=== PATIENT | female | born 1985 | race Two or more races ===

== ENCOUNTER 2019-05-08 12:08 | Emergency (ER) | payer MEDICAID ==
[~2019-05-08] VITALS: Ht 157.5 cm; Wt 58.2 kg
[2019-05-08 16:22] VITALS: BP 115/68
== END 2019-05-08 16:24 | disposition home or self-care (01) ==
LOC: ER 12:08
DX: J02.9 Acute pharyngitis, unspecified (principal); M79.18 Myalgia, other site; Z98.51 Tubal ligation status
CPT/HCPCS: 99283